=== PATIENT | female | born 1965 | race Caucasian/White ===

== ENCOUNTER 2016-06-13 09:18 | Day surgery (SDC) | payer OTHER ==
[~2016-06-13] VITALS: Ht 154.9 cm; Wt 127.5 kg
[2016-06-13 09:52] VITALS: Ht 154.9 cm; Wt 127.5 kg
[2016-06-13] MEDS ORDERED: METF-382 PO (10:02)
[2016-06-13] MEDS ORDERED: CHOLESTEROL (10:02)
[2016-06-13] MEDS ORDERED: BP (10:02)
[2016-06-13] MEDS ORDERED: ASPIRIN (10:02)
[2016-06-13] MEDS ORDERED: MIDAZOLAM 1 MG/ML 2 ML INJ ONE ×2 (10:14)
[2016-06-13] MEDS ORDERED: PROPOFOL 40 ML ONE (10:14)
[2016-06-13 10:23] VITALS: BP 178/95; PULSE 70; RESP 20
--- NOTE | 2016-06-16 07:24 | GILP ---
DATE OF PROCEDURE: NAME OF PROCEDURES: Colonoscopy, polypectomy and colon polyp biopsy. PREOPERATIVE DIAGNOSIS: Screening colonoscopy, rule out colon polyps. POSTOPERATIVE DIAGNOSES: 1. A 6 mm polyp on a stalk noted in the rectum. 2. A 3 mm flat polyp noted in the distal ascending colon. 3. Diverticulosis. 4. Hemorrhoids. DESCRIPTION OF PROCEDURE: After informed written consent was obtained, the patient was asked to lie on the left lateral side. Intravenous anesthesia was given by anesthesiologist, Dr. Johnston. When the patient became somnolent, the Olympus video colonoscope was introduced into the rectum. In the rectum at about 7 cm from the anus, there is evidence of a 6 mm polyp on a stalk noted. By using th e hot snare, polypectomy was performed. The distal ascending colon showed evidence of a 3 mm flat p olyp. This was removed with help of a cold biopsy forceps. Occasional diverticula noted all along the colon, but no diverticulitis, no evidence of bleeding noted. The rest of the colon up to the ce cum appeared normal. On the way out, no additional abnormalities detected. Retroflexion was perfor med. When the scope was withdrawn, minimal external hemorrhoids were noted and the procedure was te rminated. PLAN: Recommend wait for the pathology report, repeat colonoscopy based on the pathology findings. Dictated By: FARHAD MCPHERSON/REHANA Conf#: [id number] DID#: [id number]
== END 2016-06-13 13:14 | disposition home or self-care (01) ==
LOC: GIL 09:18
PROVIDERS: ATTEND Internal Medicine Gastroenterology
DX: Z12.11 Encounter for screening for malignant neoplasm of colon (principal); D12.2 Benign neoplasm of ascending colon; K62.1 Rectal polyp; K57.90 Diverticulosis of intestine, part unspecified, without perforation or abscess without bleeding; K64.4 Residual hemorrhoidal skin tags; I10 Essential (primary) hypertension; E11.9 Type 2 diabetes mellitus without complications; E78.5 Hyperlipidemia, unspecified; E66.01 Morbid (severe) obesity due to excess calories; Z68.43 Body mass index [BMI] 50.0-59.9, adult
CPT/HCPCS: 45380; 82962; 88305; J2250; Z7610